=== PATIENT | male | born 1970 | race Caucasian/White ===

== ENCOUNTER → 2019-02-20 18:51 | Outpatient (CLI) | payer OTHER, SELFPAY ==
--- NOTE | 2019-02-20 18:53 | DI.RAD.S_ITS ---
PROCEDURE: XR CLAVICLE BI INDICATIONS: r clavicle pain TECHNIQUE: 2 views of each clavicle were acquired. COMPARISON: None. FINDINGS: Bones: No fractures or dislocations. The acromioclavicular joints appear congruent. There is a small sclerotic focus in the right humeral head likely representing a bone island. Soft tissues: No suspicious soft tissue calcifications. IMPRESSION: 1. No fracture or subluxation. Dictated by: Charles Guerra M.D. on 02/20/2019 at 19:37 Approved by: Charles Guerra M.D. on 02/20/2019 at 19:37
== END ==
PROVIDERS: Family Provider Family Medicine; PCP Family Medicine; Visit Provider Physician Assistant
DX: M25.511 Pain in right shoulder (principal); M89.8X1 Other specified disorders of bone, shoulder
CPT/HCPCS: 73000

== ENCOUNTER 2022-12-01 13:49 | Day surgery (SDC) | payer OTHER, SELFPAY ==
[2022-12-01 14:08] VITALS: BP 131/84; PULSE 69; RESP 21; TEMP 36.2; O2SAT 97; BMI 24.9
[2022-12-01] MEDS: LACTATED RINGERS 1,000 ML 200 ML IV (14:24)
--- NOTE | 2022-12-01 15:02 | P.HP_ITS ---
History of Present Illness History of Present Illness Date Patient Seen: 12/01/22 Time Patient Seen: 15:02 Chief complaint: Dx Colonoscopy w/poss bx Narrative: 52-year-old man with intermittent rectal pain here for diagnostic colonoscopy. Please refer to the H and P from October 2022 for further detail. In the interval he reports no further rectal pain. [facility] Social History marital status: household members: spouse lives independently: Yes occupational status: employed Smoking Status: Former smoker alcohol intake: current substance use type: does not use Meds Home Medications and Allergies Allergies Allergy/AdvReac Type Severity Reaction Status Date / Time No Known Drug Allergies Allergy Verified 12/01/22 14:06 Exam Vital Signs (past 8 hours): - 12/01/22 14:08 Temperature 97.2 F L Pulse Rate 69 Respiratory Rate 21 Blood Pressure 131/84 Pulse Oximetry 97 Oxygen Delivery Method Room Air Oxygen Delivery Method Room Air Narrative Exam Narrative: General adult man alert oriented no acute distress Assessment & Plan Assessment and plan (1) Rectal pain: Status: Acute Assessment & Plan narrative: The patient requires colorectal screening and colonoscopy is recommended. Technical details were discussed. Risks, benefits, alternatives explained. Risks including but not limited to myocardial infarction, aspiration, bleeding, pain, missed lesion, incomplete examination, need for further radiographic studies, colonic perforation, and need for major abdominal surgery were discussed. All questions were answered to their satisfaction, and they are in agreement with this plan.
--- NOTE | 2022-12-01 15:35 | PM.OP.COLON ---
Operative Date/Time/Diagnoses Date of procedure: 12/01/22 Time of procedure: 15:35 Pre-op diagnosis: Rectal pain Post-op diagnosis: other (Normal colonoscopy) Procedure & Clinicians Study performed: Colonoscopy Same procedure as scheduled: Yes Indications: 52-year-old man with intermittent rectal pain here for diagnostic colonoscopy Surgeon: Julio Cesar Aguilar Procedure Notes Procedure in detail: The history and physical was performed/updated and the patient is ASA class is 2. The procedure was discussed in detail with the patient. Potential risks complications including infection, bleeding, missed diagnosis, perforation, need for surgery, and were explained. Their questions were answered and informed consent was obtained. Patient was brought to the procedure room and placed standard monitoring equipment. The patient's vital signs were monitored continuously throughout the entire procedure. Prior to starting time-out was performed. The patient was placed in the left lateral recumbent position. Procedural sedation was administered by anesthesia. Examination began with a thorough inspection of the perianal area there was no evidence of fissures, fistulae, external hemorrhoids or cutaneous malignancy. The colonoscopy scope was then placed into the anal canal and was advanced to the cecum, which was identified by the ileocecal valve, the appendiceal orifice and the confluence of the taenia. The scope was then slowly withdrawn examining colon thoroughly in all directions, irrigating it of any residual stool. Normal healthy colon. Colon is without inflammation masses or polyps. The patient tolerated the procedure well. They will be discharged once criteria are met. The prep was of good/excellent quality. The withdrawl time was 6 minutes. Specimen(s): none sent Impression: Normal colonoscopy Post-procedure Recommendations: Colonoscopy in 10 years Disposition: same day surgery
[2022-12-01 15:37] VITALS: BP 128/76; PULSE 68; RESP 15; TEMP 36.4; O2SAT 96
[2022-12-01 15:43] VITALS: BP 130/78; PULSE 72; RESP 21; TEMP 36.4; O2SAT 96
[2022-12-01 15:45] VITALS: BP 116/79; PULSE 66; RESP 16; O2SAT 99
[2022-12-01 15:54] VITALS: BP 119/81; PULSE 65; RESP 14; TEMP 37; O2SAT 98
== END 2022-12-01 16:01 | disposition home or self-care (01) ==
PROVIDERS: Family Provider Family Medicine; PCP Internal Medicine; Referring Provider Surgery; Visit Provider Surgery
PROC: 0DJD8ZZ Inspection of Lower Intestinal Tract, Via Natural or Artificial Opening Endoscopic (ICD-10-PCS; CPT 45378; principal; 2022-12-01 14:45)
DX: K62.89 Other specified diseases of anus and rectum (principal)
CPT/HCPCS: 45378; J2250; J3010

== ENCOUNTER → 2023-09-16 10:41 | Outpatient (CLI) | payer OTHER, SELFPAY ==
--- NOTE | 2023-09-16 10:42 | DI.RAD.S_ITS ---
PROCEDURE: XR CERVICAL SPINE MIN 6V INDICATIONS: neck pain, no trauma TECHNIQUE: 7 views of the cervical spine were acquired. COMPARISON: None. FINDINGS: Bones: No acute fractures or dislocations to the T1 level. No suspicious bony lesions. There is reduced range of motion between flexion and extension, without abnormal subluxation. Minimal degenerative endplate changes are noted in the cervical spine. Focal uncovertebral joint and facet hypertrophy is seen resulting in moderate neural foraminal narrowing on the right at the C3-4 level and mild narrowing on the left at the C6-7 level. Soft tissues: Prevertebral soft tissues are normal in thickness. IMPRESSION: 1. Mild spondylosis with neural foraminal narrowing that is most notable at the C3-4 level on the right. MRI could be performed for further evaluation if indicated clinically. 2. Reduced cervical range of motion without abnormal subluxation. Approved by: Clemente Alonzo M.D. on 09/16/2023 at 21:15
[2023-09-16 11:02] LABS: Hematocrit 47.5 % (41-53); Hemoglobin 16.1 g/dL (13.5-17.5); Mean Corpuscular Hemoglobin 32.6 PG (26-34); Platelet Count 196 X10^3/uL (150-400); Red Blood Cell Count 4.95 X10^6/uL (4.5-5.9); White Blood Cell Count 5.7 X10^3/uL (4.5-11.0)
[2023-09-16 11:28] LABS: Alanine Aminotransferase 31 IU/L (<50); Albumin 4.6 g/dL (3.5-5.0); Albumin Globulin Ratio 1.3 (1.0-2.8); Alkaline Phosphatase 58 U/L (38-126); Aspartate Aminotransferase 29 IU/L (17-59); BUN Creatinine Ratio 16.5 (6-22); Blood Urea Nitrogen 15 mg/dL (9-20); Carbon Dioxide 28 mmol/L (22-32); Chloride 102 mmol/L (98-107); Cholesterol 185 mg/dL (140-199); Estimated Glomerular Filt Rate > 60 mL/min (>60); Globulin 3.5 g/dL (1.7-4.1); Glucose 91 mg/dL (70-100); HDL Cholesterol 48 mg/dL (40-60); HEMOLYSIS < 15 (0-50); LDL Cholesterol Calculated 111 mg/dL (<100); Potassium 4.1 mmol/L (3.4-5.1); Sodium 139 mmol/L (137-145); Total Protein 8.1 g/dL (6.3-8.2); Triglycerides 131 mg/dL (35-150)
[2023-09-16 11:58] LABS: Prostate Specific Antigen 0.432 ng/mL (0.10-4.00); TSH w/ Reflex to FT4 1.52 uIU/mL (0.47-4.68)
== END ==
PROVIDERS: Family Provider Family Medicine; PCP Internal Medicine; Referring Provider Internal Medicine; Visit Provider Internal Medicine
DX: Z00.00 Encounter for general adult medical examination without abnormal findings (principal); M54.2 Cervicalgia; G89.29 Other chronic pain; E78.2 Mixed hyperlipidemia
CPT/HCPCS: 36415; 72052; 80053; 80061; 84153; 84443; 85027

== ENCOUNTER → 2023-09-30 15:32 | Outpatient (CLI) | payer OTHER, SELFPAY ==
--- NOTE | 2023-09-30 15:33 | DI.CT.S_ITS ---
PROCEDURE: CT LUNG LOW DOSE SCREENING INDICATIONS: lung cancer screening TECHNIQUE: Noncontrast 2.0-2.5 mm thick sections acquired from the pulmonary apices to the posterior costophrenic angles. 7 mm thick axial MIP, and 5 mm coronal and sagittal reformats were then acquired. For radiation dose reduction, the following was used: automated exposure control, adjustment of mA and/or kV according to patient size. COMPARISON: None. FINDINGS: Image quality: Diagnostic. Lower Neck: No enlarged lymph nodes. Thyroid: No thyroid nodules which require sonographic follow up, per consensus guidelines. Axillae: No enlarged lymph nodes. Chest Wall: Unremarkable. Bones: Unremarkable. Lungs and Pleura: No pneumothorax or pleural effusions. No consolidation or suspicious nodules. Heart: Heart size is normal. No pericardial effusion. Thoracic Vessels: The aorta and pulmonary arteries demonstrate normal size. Mediastinum and Arlene: No enlarged lymph nodes. Esophagus: No wall thickening. No hiatal hernia. Upper Abdomen: Visualized upper abdomen solid organs and bowel loops appear normal. IMPRESSION: No suspicious pulmonary nodules. LUNG-RADS 1; continued annual screening, if eligible. Clinically Significant Non-pulmonary Findings: None. Dictated by: Shilpa Ramos M.D. on 10/01/2023 at 10:32 Approved by: Shilpa Ramos M.D. on 10/01/2023 at 10:40
== END ==
PROVIDERS: Family Provider Family Medicine; PCP Internal Medicine; Referring Provider Internal Medicine; Visit Provider Internal Medicine
DX: Z12.2 Encounter for screening for malignant neoplasm of respiratory organs (principal); Z87.891 Personal history of nicotine dependence
CPT/HCPCS: 71271

== ENCOUNTER → 2025-01-11 14:05 | Outpatient (CLI) | payer OTHER, SELFPAY ==
[2025-01-11 15:05] LABS: Hemoglobin A1C% w Est Avg Glu 5.1 % (4.0-6.0)
[2025-01-11 15:22] LABS: BUN Creatinine Ratio 18.7 (6-22); Blood Urea Nitrogen 17 mg/dL (9-20); Calcium 8.9 mg/dL (8.4-10.2); Carbon Dioxide 23 mmol/L (22-32); Chloride 103 mmol/L (98-107); Cholesterol 184 mg/dL (140-199); Estimated Glomerular Filt Rate > 60 mL/min (>60); Glucose 99 mg/dL (70-99); HDL Cholesterol 49 mg/dL (40-60); HEMOLYSIS < 15 (0-50); LDL Cholesterol Calculated 99 mg/dL (<100); Potassium 4.1 mmol/L (3.4-5.1); Sodium 137 mmol/L (137-145); Triglycerides 178 mg/dL (35-150)
[2025-01-11 15:53] LABS: Prostate Specific Antigen Scrn 0.329 ng/mL (0.1-4.0)
== END ==
PROVIDERS: Family Provider Family Medicine; PCP Internal Medicine; Referring Provider Internal Medicine; Visit Provider Internal Medicine
DX: Z00.00 Encounter for general adult medical examination without abnormal findings (principal); R73.01 Impaired fasting glucose; E78.2 Mixed hyperlipidemia; Z12.5 Encounter for screening for malignant neoplasm of prostate
CPT/HCPCS: 36415; 80048; 80061; 83036; G0103

== ENCOUNTER → 2025-01-22 12:37 | Outpatient (CLI) | payer OTHER, SELFPAY ==
--- NOTE | 2025-01-22 13:00 | DI.CT.S_ITS ---
PROCEDURE: CT LUNG LOW DOSE SCREENING INDICATIONS: history of tobacco > 20 pyh, quit 2017 TECHNIQUE: Noncontrast 2.0-2.5 mm thick sections acquired from the pulmonary apices to the posterior costophrenic angles. 7 mm thick axial MIP, and 5 mm coronal and sagittal reformats were then acquired. For radiation dose reduction, the following was used: automated exposure control, adjustment of mA and/or kV according to patient size. COMPARISON: [facility], CT, CT LUNG LOW DOSE SCREENING, 09/30/2023, 15:42. FINDINGS: Image quality: Diagnostic. Lower Neck: No enlarged lymph nodes. Thyroid: No thyroid nodules which require sonographic follow up, per consensus guidelines. Axillae: No enlarged lymph nodes. Chest Wall: Unremarkable. Bones: No aggressive appearing bony lesions. Lungs and Pleura: No pneumothorax or pleural effusions. Linear scarring/atelectasis in posterior aspect of bilateral lung bases are seen. No consolidation or suspicious nodules. Heart: Heart size is normal. No pericardial effusion. Thoracic Vessels: The aorta and pulmonary arteries demonstrate normal size. Mediastinum and Arlene: No enlarged lymph nodes. Esophagus: No wall thickening. No hiatal hernia. Upper Abdomen: Visualized upper abdomen solid organs and bowel loops appear normal. IMPRESSION: 1. No suspicious pulmonary nodules. LUNG-RADS 1; continued annual screening, if eligible. Clinically Significant Non-pulmonary Findings: None. Dictated by: Selwyn Meredith M.D. on 01/22/2025 at 20:45 Approved by: Selwyn Meredith M.D. on 01/22/2025 at 20:50
== END ==
LOC: CT 12:37
PROVIDERS: Family Provider Family Medicine; PCP Internal Medicine; Referring Provider Internal Medicine; Visit Provider Internal Medicine
DX: Z12.2 Encounter for screening for malignant neoplasm of respiratory organs (principal); Z87.891 Personal history of nicotine dependence
CPT/HCPCS: 71271